=== PATIENT | male | born 1990 | race Caucasian/White ===

== ENCOUNTER 2021-04-14 11:24 | Emergency (ER) | payer BC, MEDICAID, SELFPAY ==
[2021-04-14 12:42] VITALS: BP 119/74; PULSE 62; RESP 16; TEMP 36.6; O2SAT 100; BMI 24.7
--- NOTE | 2021-04-14 13:08 | ED_ITS ---
HPI - COVID General: Chief Complaint: COVID symptoms Stated Complaint: COUGH RUNNY NOSE Time Seen by Provider: 04/14/21 12:52 Triage information: Has fever, cough or shortness of breath . No known COVID + exposure last 14 days History of Present Illness: HPI Narrative: Patient states he had some reflux this morning vomited x1 denies any other symptoms. Prior covid testing: no COVID 19 common symptoms: positive nausea and vomiting (X1, needs note for work that he can go back today.); negative fever(s), chills, non-productive cough, productive cough, dyspnea, body aches, headache(s), throat pain or nasal congestion COVID 19 other sytmptoms: negative chest pain Onset (ago): hour(s) Severity: mild COVID Results: No Data to Display Review of Systems Const: Denies: fever(s), chills or body aches Eyes: Denies: change in vision or blurry vision ENMT: Denies: throat pain or nasal congestion Card: Denies: chest pain or dyspnea on exertion Resp: Denies: dyspnea, productive cough or non-productive cough GI: Reports: nausea, vomiting (X1, needs note for work that he can go back today.) and heartburn : Denies: difficulty urinating Musc: Denies: extremity pain Skin/Breast: Denies: rash Neuro: Denies: headache(s) Psych: Denies: anxiety or depression Randolph/Lymph: Denies: easy bruising Physical Exam Const: COMMON NORMALS: no acute distress, average body habitus and patient oriented x3 HENMT: COMMON NORMALS: normocephalic HEAD & SCALP: normal to inspection and normocephalic FACE & SINUS: normal facial exam Eye: COMMON NORMALS: conjunctivae normal GENERAL EYE: appearance normal, both eyes and all related structures CONJUNCTIVA: Yes conjunctivae normal Neck/C-Spine: COMMON NORMALS: no JVD Chest: COMMONS NORMALS: normal inspection of the chest Resp: COMMON NORMALS: normal respiratory effort and clear to auscultation bilaterally AUSCULTATION: clear to auscultation bilaterally Cardio: COMMON NORMALS: no JVD, regular rate and regular rhythm RATE: regular rate RHYTHM: regular rhythm GI: COMMON NORMALS: Normal to inspection, nondistended, normoactive bowel sounds present Extremity: COMMON NORMALS: normal to inspection and full ROM Neuro: COMMON NORMALS: patient oriented x3 Course Vital Signs: Vital signs: Vital Signs Temperature 97.9 F 04/14/21 12:42 Pulse Rate 62 04/14/21 12:42 Respiratory Rate 16 04/14/21 12:42 Blood Pressure 119/74 04/14/21 12:42 Pulse Oximetry 100 04/14/21 12:42 MDM - COVID COVID Results: No Data to Display Discharge Plan Discharge Patient Disposition: Home Clinical Impression: Acid reflux Qualifiers: Esophagitis presence: esophagitis presence not specified Qualified Code(s): K21.9 - Gastro-esophageal reflux disease without esophagitis Condition: Stable Discharge Orders: Discharge ED (Routine); Ordered 04/14/21 Ordered By: Roldan Sosa Discharge Diet: Advance as tolerated Discharge Activity: Resume usual activity Activity Restrictions/Additional Instructions: Can use [id number] Prilosec, Nexium or Tagamet. Low-fat diet. Follow-up your primary care provider as needed. Stand Alone Forms: Work/School Release Coding Level of Care Code ED Sap Bods Developer for Sugey Franco
[2021-04-14 14:13] VITALS: O2SAT 99
[2021-04-14 14:26] LABS: SARS Covid-2 Antigen Negative (Negative)
== END 2021-04-14 14:15 | disposition home or self-care (01) ==
PROVIDERS: Emergency Provider Nurse Practitioner Family
DX: K21.9 Gastro-esophageal reflux disease without esophagitis (principal); Z20.822 Contact with and (suspected) exposure to COVID-19
CPT/HCPCS: 87426; 99281

== ENCOUNTER 2021-07-11 20:49 | Inpatient (IN) | payer BC, SELFPAY ==
[2021-07-11 21:00] VITALS: BP 135/78; PULSE 95; RESP 16; TEMP 36.6; O2SAT 98; BMI 26.5
[2021-07-11 21:16] LABS: Basophils % 0.2 %; Eosinophils # 0.1 10^3/uL (0.0-0.8); Eosinophils % 1.2 %; Hematocrit 48.1 % (42.0-52.0); Hemoglobin 16.7 g/dL (11.7-16.6); Lymphocytes # 2.9 10^3/uL (0.8-4.8); Lymphocytes % 28.6 %; Mean Corpuscular HGB Conc 34.7 g/dL (30.0-36.0); Mean Corpuscular Hemoglobin 29.7 pg (28.0-34.0); Mean Corpuscular Volume 85.4 fl (80-94); Mean Platelet Volume 9.6 fL (7.4-10.4); Monocytes # 0.5 10^3/uL (0.2-0.9); Monocytes % 5.2 %; Neutrophils # 6.44 10^3/uL (1.8-7.7); Neutrophils % 64.3 %; Nucleated Red Blood Cells % 0 %; Platelet Count 278 10^3/cmm (130-400); Red Blood Count 5.63 10^6/uL (4.1-5.3); Red Cell Distribution Width 12.4 % (12.1-15.1)
--- NOTE | 2021-07-11 21:23 | ED.C_ITS ---
HPI - Psych General: Chief Complaint: Psychiatric Symptoms Stated Complaint: SI, afraid he will hurt others Time Seen by Provider: 07/11/21 20:57 Source: patient Mode of arrival: ambulatory Limitations: no limitations History of Present Illness: HPI Narrative: 22-year-old male states he been having severe depression is worsening over the last week states he is used to be on meds but is not been taking them. States has been out for months. He states that he has had increasing suicidal thoughts with a thought of shooting himself and is scared he is going to do it patient states he would like to get help. Associated symptoms: Reports suicidal ideation Review of Systems Const: Denies: fever(s), chills, body aches or change in appetite Eyes: Denies: blurry vision or eye discomfort ENMT: Denies: throat pain or dental pain Card: Denies: chest pain Resp: Denies: dyspnea GI: Denies: abdominal pain, nausea, vomiting or diarrhea : Denies: dysuria Musc: Denies: neck pain or back pain Skin/Breast: Denies: rash Neuro: Denies: headache(s) Psych: Reports: suicidal ideation Randolph/Lymph: Denies: easy bruising All/Imm: Denies: urticaria Physical Exam Const: COMMON NORMALS: no acute distress, patient oriented x3 and healthy appearing HENMT: COMMON NORMALS: normocephalic and atraumatic HEAD & SCALP: normocephalic and atraumatic Eye: COMMON NORMALS: Equal, round and reactive pupils present and EOMs intact bilaterally PUPIL: Yes Equal, round and reactive pupils present Neck/C-Spine: COMMON NORMALS: full ROM and supple Chest: COMMONS NORMALS: normal inspection of the chest and normal palpation of entire chest wall Resp: COMMON NORMALS: normal respiratory effort, No retractions, No use of accessory muscles and clear to auscultation bilaterally AUSCULTATION: clear to auscultation bilaterally Cardio: COMMON NORMALS: regular rate, regular rhythm and No murmurs present (Cardio) RATE: regular rate RHYTHM: regular rhythm GI: COMMON NORMALS: Normal to inspection, nondistended, normoactive bowel sounds present, Soft to palpation, non-tender and no masses PALPATION: Yes Soft to palpation Extremity: COMMON NORMALS: normal to inspection and full ROM Neuro: COMMON NORMALS: patient oriented x3, moves all extremities and no focal motor deficits Psych: COMMON NORMALS: mental status grossly normal, Normal thought process present and cooperative THOUGHT PROCESS: Normal thought process present THOUGHT CONTENT: Yes Suicidality present Skin: COMMON NORMALS: no rashes or lesions noted and no wounds GENERAL SKIN EXAM: no rashes or lesions noted Course Vital Signs: Vital signs: Vital Signs Temperature 97.8 F 07/11/21 21:00 Pulse Rate 95 07/11/21 21:00 Respiratory Rate 16 07/11/21 21:00 Blood Pressure 135/78 07/11/21 21:00 Pulse Oximetry 98 07/11/21 21:00 MDM - Psych MDM Narrative: Medical decision making narrative: Patient presents here with suicidal ideations patient is medically cleared spoke to Dr. Parker who is admitting patient's blood work is all normal patient is under 96-hour hold. Lab Data: Labs: Lab Results 07/11/21 07/11/21 07/11/21 21:10 21:10 21:17 WBC 10.0 10^3/uL 10^3 /uL (4.0-10.0) RBC 5.63 10^6/uL H 10 ^6/uL (4.1-5.3) Hgb 16.7 g/dL H g/dL (11.7-16.6) Hct 48.1 % % (42.0-52.0) MCV 85.4 fl fl (80-94) MCH 29.7 pg pg (28.0-34.0) MCHC 34.7 g/dL g/dL (30.0-36.0) RDW 12.4 % % (12.1-15.1) Plt Count 278 10^3/cmm 10^3 /cmm (130-400) MPV 9.6 fL fL (7.4-10.4) Neut % (Auto) 64.3 % % Lymph % (Auto) 28.6 % % [place] % (Auto) 5.2 % % Eos % (Auto) 1.2 % % Baso % (Auto) 0.2 % % Neut # (Auto) 6.44 10^3/uL 10^3 /uL (1.8-7.7) Lymph # (Auto) 2.9 10^3/uL 10^3/ uL (0.8-4.8) [place] # (Auto) 0.5 10^3/uL 10^3/ uL (0.2-0.9) Eos # (Auto) 0.1 10^3/uL 10^3/ uL (0.0-0.8) Baso # (Auto) 0.0 10^3/uL 10^3/ uL (0.0-0.1) Nucleated RBC % (a uto) 0 % % Nucleated RBCs # 0.0 /100WBC /100W BC Sodium 140 mmol/L mmol/L (136-145) Potassium 3.6 mmol/L mmol/L (3.5-5.1) Chloride 105 mmol/L mmol/L (98-107) Carbon Dioxide 22 mmol/L mmol/L (22-29) Anion Gap 16.6 (5-19) BUN 12 mg/dL mg/dL (6-20) Creatinine 0.8 mg/dL mg/dL (0.7-1.2) GFR Calculation 115.1 mL/min mL/m in (90-130) Glucose 91 mg/dL mg/dL (65-115) Calculated Osmolal ity 289 mOsm/kg mOsm/ kg (285-295) Calcium 8.8 mg/dL mg/dL (8.5-10.5) Total Bilirubin 0.4 mg/dL mg/dL (0.15-1.2) AST 18 U/L U/L (0-40) ALT 15 U/L U/L (0-41) Alkaline Phosphata se 53 IU/L IU/L (40-130) Total Protein 7.1 g/dL g/dL (6.6-8.7) Albumin 4.5 g/dL g/dL (3.5-5.2) Globulin 2.6 g/dL g/dL (1.3-4.6) Salicylates < 0.3 mg/dL L mg/ dL (3-10) Urine Opiates Scre en Negative ng/mL ng /mL (Negative) Acetaminophen < 5.0 ug/mL L ug/ mL (10-30) Ur Barbiturates Sc reen Negative ng/mL ng /mL (Negative) Ur Phencyclidine S crn Negative ng/mL ng /mL (Negative) Ur Amphetamines Sc reen Negative ng/mL ng /mL (Negative) U Benzodiazepines Scrn Negative ng/mL ng /mL (Negative) Urine Cocaine Scre en Negative ng/mL ng /mL (Negative) U Marijuana (THC) Screen Positive ng/mL H ng/mL (Negative) Ethyl Alcohol < 10 mg/dL mg/dL (0-10) Discharge Plan Discharge Patient Disposition: Admitted As Inpatient Clinical Impression: Suicidal ideation Condition: Stable Coding Level of Care Code ED Energy Operations Vice President for Sugey Fwsharon Exam Comprehensive
[2021-07-11] MEDS: LORazepam 2 mg Tablet PO (21:28)
[2021-07-11 21:32] LABS: Acetaminophen < 5.0 ug/mL (10-30); Alanine Aminotransferase 15 U/L (0-41); Albumin Level 4.5 g/dL (3.5-5.2); Alcohol Level < 10 mg/dL (0-10); Alkaline Phosphatase 53 IU/L (40-130); Anion Gap 16.6 (5-19); Aspartate Amino Transferase 18 U/L (0-40); Blood Urea Nitrogen 12 mg/dL (6-20); Calcium 8.8 mg/dL (8.5-10.5); Carbon Dioxide 22 mmol/L (22-29); Chloride 105 mmol/L (98-107); Globulin 2.6 g/dL (1.3-4.6); Glomerular Filtration Rate 115.1 mL/min (90-130); Glucose 91 mg/dL (65-115); Osmolality Calculated 289 mOsm/kg (285-295); Potassium 3.6 mmol/L (3.5-5.1); Salicylate < 0.3 mg/dL (3-10); Sodium 140 mmol/L (136-145); Total Bilirubin 0.4 mg/dL (0.15-1.2); Total Protein 7.1 g/dL (6.6-8.7)
[2021-07-11 21:32] LABS: Amphetamines Screen Urine Negative (Negative); Barbiturates Screen Urine Negative (Negative); Benzodiazepines Screen Urine Negative (Negative); Cocaine Screen Urine Negative (Negative); Opiate Screen Urine Negative (Negative); PCP Screen Urine Negative (Negative); THC Screen Urine Positive (Negative)
[2021-07-12 00:26] VITALS: BP 100/67; PULSE 94; RESP 16; TEMP 36.8; O2SAT 96
--- NOTE | 2021-07-12 00:56 | PC.ADMIT ---
[address] [facility] Admission Note: The patient,Dileep Islas,30 y/o, was given written information regarding hospital policies, unit procedures and contact persons. Patient's smoking status: . Vital Signs - 8 hr 07/11/21 21:00 07/12/21 00:26 Temperature 97.8 F 98.2 F Pulse Rate 95 94 Respiratory Rate 16 16 Blood Pressure 135/78 100/67 Pulse Oximetry 98 96 Patient arrives on unit via w/c groggy with slurred speech. Patient is cooperative but having trouble staying awake. He states he is here for depression and SI. States he quit taking his medications over a yr ago and has recently been having thoughts of shooting himself. He had family bring him to the ER for evaluation. He denies current SI upon assessment. Skin assessment unremarkable. pt given snack then retired to bed. Will continue to monitor and follow plan of care.
[2021-07-12 06:00] VITALS: RESP 15
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
[2021-07-12] MEDS: hyDROXYzine 25 mg Capsule 50 MG PO ×2 (09:50→21:13)
[2021-07-12] MEDS: OLANZapine 5 mg ODT PO (09:51)
[2021-07-12 14:00] VITALS: BP 92/57; PULSE 66; RESP 17; TEMP 36.9; O2SAT 98
[2021-07-12 20:43] VITALS: BP 106/62; PULSE 16; RESP 68; TEMP 36.2; O2SAT 98
[2021-07-12] MEDS: trazodone 50 mg Tablet PO (21:13)
[2021-07-13 06:00] VITALS: BP 136/97; PULSE 75; RESP 16; TEMP 36.7; O2SAT 97; BMI 26.5
[2021-07-13] MEDS: OLANZapine 5 mg ODT PO (08:02)
--- NOTE | 2021-07-13 09:57 | W.PM.NPUPNS ---
Subjective NPU Subjective: Interval history: Patient presents today reporting that he is feeling a little better with the medication as prescribed. We had discussed the possibility of increasing the dose if he felt it was not effective. He reported that he wanted to stay at the dose right now while he is adjusting to it and then we could consider that possibility later. He endorses he still having symptoms but he is feeling a little bit safer and less irritable. Mental Status Exam MSE Comments: This is a well-nourished well-developed short white male in hospital scrubs with a nose ring with limited grooming and eye contact. No abnormal movements except for psychomotor retardation. Cooperative with exam in moderate distress. Speech was decreased rate and volume. Mood described as not as bad, affect congruent. Thought process organized. Thought content: Patient endorsed suicidal thoughts but denied homicidal thoughts, there are no delusions noted but some paranoia endorsed he did not report auditory or visual hallucinations but appeared to possibly be attending to internal stimuli. Attention and concentration were intact and memory appeared reliable but none were formally tested. Alert and oriented x3. Insight and judgment appear fair, impulse control is limited. Vitals/I&O/Wt Last Vital Signs Temp 98.1 F 07/13/21 06:00 Pulse 75 07/13/21 06:00 Resp 16 07/13/21 06:00 BP 136/97 07/13/21 06:00 Pulse Ox 97 07/13/21 06:00 Weight last 48 hrs Weight 65.771 kg Weight 65.771 kg Data NPU : 07/11/21 21:10 07/11/21 21:10 A&P Additional A&P Information (1) Suicidal ideation: (2) History of bipolar disorder: (3) Depression: (4) Anxiety: (5) Cannabis abuse: Additional A&P Information This is a 31-year-old white male with a long history of bipolar disorder who presents reporting depression, anxiety and suicidal/homicidal thinking who has been off of medications and reports being open to restarting treatment including medication. 1. Continue current medication. 2. Continue every 15 minute checks for safety. 3. Encourage individual, group and milieu therapies. 4. Encourage sober living treatment after discharge at the highest level of care to which he is willing to commit. Involuntary Hold Information 96 Hour Hold: 96 Hour Involuntary Admission: Yes 96 Hour Hold Ending Date: 07/17/21 96 Hour Hold Ending Time: 21:55 Attestations NPU Medical Necessity Statement*: Inpatient hospitalization is medically necessary and the clinically appropriate intervention at this time. We will monitor medication to make changes as indicated. Likely length of stay for days. Coding Level of Care Code Acute Upholstery Repairer for Sugey Franco
[2021-07-13] MEDS: ARIPiprazole 10 mg Tablet PO (12:02)
[2021-07-13 14:00] VITALS: BP 106/69; PULSE 60; RESP 18; TEMP 36.7; O2SAT 100
[2021-07-13] MEDS: nicotine 2 mg Gum BUCCAL (18:31)
[2021-07-13 20:41] VITALS: BP 92/54; PULSE 66; RESP 17; TEMP 37.2; O2SAT 97
[2021-07-14 06:00] VITALS: BP 81/60; PULSE 92; RESP 18; TEMP 36.8; O2SAT 96
--- NOTE | 2021-07-14 08:56 | W.PM.NPUH&PS ---
Providers/Chief Complaint Admitting Physician: Baljeet Parker MD Chief Complaint: SI, afraid he will hurt others HPI NPU History of Present Illness Dileep Islas is a 31 year old male who to the emergency department: Chief Complaint: Psychiatric Symptoms Stated Complaint: SI, afraid he will hurt others Time Seen by Provider: 07/11/21 20:57 Source: patient Mode of arrival: ambulatory Limitations: no limitations History of Present Illness: HPI Narrative: 22-year-old male states he been having severe depression is worsening over the last week states he is used to be on meds but is not been taking them. States has been out for months. He states that he has had increasing suicidal thoughts with a thought of shooting himself and is scared he is going to do it patient states he would like to get help. Associated symptoms: Reports suicidal ideation Meds NPU Home Medications Medication Instructions Recorded Confirmed Last Taken Type No Known Home Medications 07/12/21 07/12/21 Unknown History Allergies Allergy/AdvReac Type Severity Reaction Status Date / Time No Known Allergies Allergy Verified 04/14/21 12:44 Vitals/I&O/Wt Last Vital Signs Temp 98.3 F 07/14/21 06:00 Pulse 92 07/14/21 06:00 Resp 18 07/14/21 06:00 BP 81/60 07/14/21 06:00 Pulse Ox 96 07/14/21 06:00 Weight last 48 hrs Weight 65.771 kg Data NPU : 07/11/21 21:10 07/11/21 21:10 Involuntary Hold Information 96 Hour Hold: 96 Hour Involuntary Admission: Yes 96 Hour Hold Ending Date: 07/17/21 96 Hour Hold Ending Time: 21:55 Coding Level of Care Code Acute Physically Impaired Teacher for Sugey Franco
[2021-07-14] MEDS: nicotine 2 mg Gum BUCCAL ×2 (09:35→18:28)
[2021-07-14] MEDS: ARIPiprazole 10 mg Tablet PO (09:35)
[2021-07-14] MEDS: OLANZapine 5 mg ODT PO (10:08)
--- NOTE | 2021-07-14 10:10 | PC.NURSE ---
Pt reports anxiety 01/09. Pt requesting medication before anxiety increases. Zydis 5mg given without complication.
--- NOTE | 2021-07-14 13:01 | NPU.GN ---
[facility] Topic:Marin Ivey / Discussion General Mood of Group: Dileep did attend and participate in group. His hygiene was ok .
--- NOTE | 2021-07-14 13:34 | P.NPUPN_ITS ---
Subjective NPU Subjective: Interval history: Patient is in today reporting that he is feeling some slight improvement. He reports that he is glad that he agreed to start medication and it is probably the change needed. He reports that he is hoping that he feels much better soon because he has to get back to work and his life. We agreed we would continue to monitor his improvement and discharge as soon as was reasonable. Mental Status Exam MSE Comments: This is a well-nourished well-developed short white male in hospital scrubs with a nose ring with limited grooming and eye contact. No abnormal movements except for psychomotor retardation. Cooperative with exam in no acute distress. Speech was decreased rate and volume. Mood described as okay, affect congruent. Thought process organized. Thought content: Patient endorsed suicidal thoughts but denied homicidal thoughts, there are no delusions noted and reported his paranoia was resolving he did not report auditory or visual hallucinations, but did acknowledge he was previously hearing things and that has been resolving as well. Attention and concentration were intact and memory appeared reliable but none were formally tested. Alert and oriented x3. Insight and judgment appear fair, impulse control is limited. Vitals/I&O/Wt Last Vital Signs Temp 98.3 F 07/14/21 06:00 Pulse 92 07/14/21 06:00 Resp 18 07/14/21 06:00 BP 81/60 07/14/21 06:00 Pulse Ox 96 07/14/21 06:00 Weight last 48 hrs Weight 65.771 kg Data NPU : 07/11/21 21:10 07/11/21 21:10 A&P Additional A&P Information (1) Suicidal ideation: (2) History of bipolar disorder: (3) Depression: (4) Anxiety: (5) Cannabis abuse: Additional A&P Information This is a 31-year-old white male with a long history of bipolar disorder who presents reporting depression, anxiety and suicidal/homicidal thinking who has been off of medications and reports being open to restarting treatment including medication. 1. Continue current medication. 2. Continue every 15 minute checks for safety. 3. Encourage individual, group and milieu therapies. 4. Encourage sober living treatment after discharge at the highest level of car e to which he is willing to commit. Involuntary Hold Information 96 Hour Hold: 96 Hour Involuntary Admission: Yes 96 Hour Hold Ending Date: 07/17/21 96 Hour Hold Ending Time: 21:55 Attestations NPU 2 Medical Necessity Statement*: Inpatient hospitalization is medically necessary and the clinically appropriate intervention at this time. We will monitor medica tion to make changes as indicated. Likely length of stay 2-4 days. Coding Level of Care Code Acute Infection Prevention Specialist for Sugey Franco
[2021-07-14 14:00] VITALS: BP 137/76; PULSE 93; RESP 17; TEMP 36.5; O2SAT 99
[2021-07-14 21:36] VITALS: BP 88/46; PULSE 71; RESP 16; TEMP 36.8; O2SAT 99
[2021-07-15] MEDS: nicotine 2 mg Gum BUCCAL ×3 (04:13→19:03)
[2021-07-15 06:17] VITALS: BP 107/75; PULSE 88; RESP 16; TEMP 36.8; O2SAT 98
[2021-07-15] MEDS: ARIPiprazole 10 mg Tablet PO (08:53)
--- NOTE | 2021-07-15 13:20 | NPU.GN ---
[facility] Topic: Marin Ivey General Mood of Group:Dileep did attend group and participated today.
[2021-07-15 14:00] VITALS: BP 114/68; PULSE 77; RESP 18; TEMP 36.7; O2SAT 97
--- NOTE | 2021-07-15 19:18 | P.NPUPN_ITS ---
Subjective NPU Subjective: Interval history: Patient presents today reporting that he is feeling significantly better and is really glad that he came to the hospital. He reports that his life in general is going great. He reports has a job in place to stay and things were going really well except for his mental health and the psychosis he was experiencing. He reports that the Abilify has been effective and we discussed the likelihood of discharge in the morning. Mental Status Exam MSE Comments: This is a well-nourished well-developed short white male in hospital scrubs with a nose ring with limited grooming and eye contact. No abnormal movements except for resolving psychomotor retardation. Cooperative with exam in no acute distress. Speech was more normal rate and volume. Mood described as better, affect congruent. Thought process organized. Thought content: Patient denied suicidal or homicidal thoughts, there are no delusions noted or reported, he denied auditory or visual hallucinations. Attention and concentration were intact and memory appeared reliable but none were formally tested. Alert and oriented x3. Insight and judgment appear fair, impulse control is limited, but improving. Vitals/I&O/Wt Last Vital Signs Temp 98.0 F 07/15/21 14:00 Pulse 77 07/15/21 14:00 Resp 18 07/15/21 14:00 BP 114/68 07/15/21 14:00 Pulse Ox 97 07/15/21 14:00 Data NPU : 07/11/21 21:10 07/11/21 21:10 A&P Additional A&P Information (1) Suicidal ideation: (2) History of bipolar disorder: (3) Depression: (4) Anxiety: (5) Cannabis abuse: Additional A&P Information This is a 31-year-old white male with a long history of bipolar disorder who presents reporting depression, anxiety and suicidal/homicidal thinking who has been off of medications and reports being open to restarting treatment including medication. 1. Continue current medication. 2. Continue every 15 minute checks for safety. 3. Encourage individual, group and milieu therapies. 4. Encourage sober living treatment after discharge at the highest level of care to which he is willing to commit. Involuntary Hold Information 96 Hour Hold: 96 Hour Involuntary Admission: Yes 96 Hour Hold Ending Date: 07/17/21 96 Hour Hold Ending Time: 21:55 Attestations NPU Medical Necessity Statement*: Inpatient hospitalization is medically necessary and the clinically appropriate intervention at this time. We will monitor medication to make changes as indicated. Likely length of stay 1-3 days. Coding Level of Care Code Acute Dramatic Arts Historian for Sugey Franco
[2021-07-15 19:52] VITALS: BP 121/66; PULSE 78; RESP 17; O2SAT 98
[2021-07-16] MEDS: nicotine 2 mg Gum BUCCAL ×2 (01:34→08:39)
[2021-07-16 06:00] VITALS: RESP 16
[2021-07-16] MEDS: ARIPiprazole 10 mg Tablet PO (08:39)
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
== END 2021-07-16 10:55 | disposition home or self-care (01) | DRG 885 ==
LOC: ER 21:24 → NP 22:42
PROVIDERS: Admitting Provider Psychiatry & Neurology Psychiatry; Emergency Provider Emergency Medicine; Visit Provider Psychiatry & Neurology Psychiatry
DX: F31.9 Bipolar disorder, unspecified (principal); R45.851 Suicidal ideations; F41.9 Anxiety disorder, unspecified; F12.10 Cannabis abuse, uncomplicated; F17.210 Nicotine dependence, cigarettes, uncomplicated; Z62.819 Personal history of unspecified abuse in childhood; Z91.51 Personal history of suicidal behavior; Z86.59 Personal history of other mental and behavioral disorders
CPT/HCPCS: 80053; 80306; 80307; 85025; 97150; 97165; 99285

== ENCOUNTER → 2024-08-24 13:53 | Outpatient (BNVA) | payer SELFPAY | PROVIDERS: Visit Provider Nurse Practitioner | DX: R30.0 Dysuria (principal); Z20.2 Contact with and (suspected) exposure to infections with a predominantly sexual mode of transmission | CPT/HCPCS: 81000; 87086; 87491; 87591 ==

== ENCOUNTER → 2024-08-25 14:11 | Outpatient (BNVA) | payer SELFPAY | PROVIDERS: Visit Provider Nurse Practitioner | DX: R30.0 Dysuria (principal); Z20.2 Contact with and (suspected) exposure to infections with a predominantly sexual mode of transmission | CPT/HCPCS: 87491; 87591 ==